=== PATIENT | male | born 1990 | race Caucasian/White ===

== ENCOUNTER 2023-06-03 14:14 | Emergency (ER) | payer OTHER ==
[~2023-06-03] VITALS: Ht 190.5 cm; Wt 93.1 kg
[2023-06-03 14:15] VITALS: BP 105/73; TEMP 98.1; O2SAT 99
[2023-06-03 15:14] LABS: AMPHETAMINES LEVEL URINE NEGATIVE (NEGATIVE); BARBITURATES URINE NEGATIVE (NEGATIVE); BENZODIAZEPINES URINE NEGATIVE (NEGATIVE); CANNABINOIDS URINE NEGATIVE (NEGATIVE); COCAINE METABOLITE URINE NEGATIVE (NEGATIVE); METHADONE URINE NEGATIVE (NEGATIVE); OPIATES URINE NEGATIVE (NEGATIVE); PHENCYCLIDINE URINE NEGATIVE (NEGATIVE)
== END 2023-06-03 17:09 | disposition home or self-care (01) ==
LOC: M ED 14:14
DX: Z77.098 Contact with and (suspected) exposure to other hazardous, chiefly nonmedicinal, chemicals (principal); F17.200 Nicotine dependence, unspecified, uncomplicated; Y92.9 Unspecified place or not applicable; Y93.9 Activity, unspecified; Y99.1 Military activity

== ENCOUNTER 2025-04-02 12:56 | Emergency (ER) | payer OTHER ==
[~2025-04-02] VITALS: Ht 190.5 cm; Wt 85.1 kg
[2025-04-02 12:58] VITALS: TEMP 96.4
[2025-04-02 13:53] LABS: BASO # 0.1 10^3/uL (0.0-0.2); BASO % 0.7 % (0.0-1.0); EOS # 0.1 10^3/uL (0.0-0.5); EOS % 1.6 % (0.0-3.0); LYMPH # 2.2 10^3/uL (1.5-5.0); LYMPH % 25.3 % (24.0-44.0); MONO # 0.5 10^3/uL (0.0-0.8); MONO % 5.9 % (2.0-8.0); NEUTROPHILS # 5.9 10^3/uL (1.5-8.5); NEUTROPHILS % 66.3 % (36.0-66.0); PLATELET COUNT, AUTOMATED 305 10^3/uL (150-450)
[2025-04-02 14:26] LABS: ALT/SGPT 21 U/L (7.0-40); AST/SGOT 22 U/L (<34); CALCIUM LEVEL 9.5 MG/DL (8.5-10.1); CARBON DIOXIDE LEVEL 27 MMOL/L (20-31); CHLORIDE LEVEL 107 MMOL/L (98-107); CREATININE FOR GFR 1.01 MG/DL (0.70-1.30); GLOMERULAR FILTRATION RATE > 90.0 (>60); POTASSIUM SERUM 4.4 MMOL/L (3.5-5.1); SODIUM LEVEL 143 MMOL/L (136-145)
[2025-04-02] MEDS: ACETAMINOPHEN *IV* 1,000 MG in IV 1 EA IV ONE (15:38)
[2025-04-02] MEDS: NS (Normal Saline) 0.9% 1,000 ML IV ONE (15:39)
[2025-04-02] MEDS ORDERED: MIRA3350 PO (16:43)
[2025-04-02] MEDS ORDERED: PERC5TAB12 PO (16:43)
[2025-04-02 17:02] LABS: TRIGLYCERIDES LEVEL 163 MG/DL (<150)
[2025-04-02 17:15] VITALS: BP 125/83
[2025-04-02 17:17] VITALS: O2SAT 96
[2025-04-02] MEDS: HYDROMORPHONE HCL 0.5 MG/0.5 ML SYRINGE IV ONE (17:17)
== END 2025-04-02 17:53 | disposition home or self-care (01) ==
LOC: M ED 12:56
DX: K86.1 Other chronic pancreatitis (principal); Z79.1 Long term (current) use of non-steroidal anti-inflammatories (NSAID); Z79.899 Other long term (current) drug therapy; Z91.013 Allergy to seafood
CPT/HCPCS: 36415; 76705; 80048; 80076; 83690; 84478; 85025; 96365; 96366; 96375; 99285; J0131; J1171